=== PATIENT | female | born 1945 | race Caucasian/White ===

== ENCOUNTER 2020-06-03 09:57 | Emergency (ER) | payer OTHER, MEDICARE ==
[2020-06-03 10:07] VITALS: BP 144/77; PULSE 57; TEMP 98; BMI 21.4
[2020-06-03] MEDS ORDERED: DIPHTH,PERTUSS(ACELL),TET 0.5 ML DISP.SYRIN IM ONE ×2 (10:49)
[2020-06-03] MEDS ORDERED: BACITRACIN 15 GM TUBE TOPICAL OINTMENT ONE (10:49)
--- NOTE | 2020-06-03 10:55 | PDOC ---
History of Present Illness - General Chief Complaint: Bite Stated Complaint: DOG BITE Time Seen by Provider: 06/03/20 10:25 History Source: Patient - History of Present Illness Timing/Duration: reports: this morning Severity: Yes: mild Location: reports: extremities Past History - Medical History Allergies/Adverse Reactions: Allergies Allergy/AdvReac Type Severity Reaction Status Date / Time codeine [Codeine] AdvReac Severe pulse goes Unverified 06/03/20 10:07 down Home Medications: Ambulatory Orders Amoxicillin/Potassium Clav [Augmentin 875-125 Tablet] 1 each PO BID #14 tablet 06/03/20 Atorvastatin Ca [Lipitor] 20 mg PO HS 06/03/20 COPD: No - Psycho-Social/Smoking History Smoking History: Never smoked - Substance Abuse Hx (Audit-C & DAST Scrn) How often the patient has a drink containing alcohol: Never Score: In Men: 4 or > Positive; In Women: 3 or > Positive: 0 Screen Result (Pos requires Nsg. Audit-10AR): Negative Review of Systems - Review of Systems Integumentary: Yes: Other (dog bite) *Physical Exam - Vital Signs Last Vital Signs Temp Pulse Resp BP Pulse Ox 98 F 57 L 18 144/77 99 06/03/20 10:02 06/03/20 10:02 06/03/20 10:02 06/03/20 10:02 06/03/20 10:02 - Physical Exam General Appearance: Yes: Appropriately Dressed. No: Apparent Distress HEENT: positive: Normal Voice Neck: positive: Supple Respiratory/Chest: negative: Respiratory Distress Integumentary: positive: Dry, Warm, Other (~1cm size superficial abrasion to volar aspect of proximal R forearm) Neurologic: positive: Fully Oriented, Alert, Normal Mood/Affect Medical Decision Making - Medical Decision Making 06/03/20 12:20 75 yo F, p/w dog bite to R forearm from a domesticated dog this am. States dog on a long leash attacked her unprovokingly. Pt poke to consulting sales manager who states dog's vaccine, including rabies UTD per pt and who works EMT see exam Dog bite Domesticated animal w/ vaccine UTD -local wound care/dressing -tetanus updated -dc w/ abx -wound check in 48 hrs Discharge - Discharge Information Problems reviewed: Yes Clinical Impression/Diagnosis: Dog bite Qualifiers: Encounter type: initial encounter Qualified Code(s): W54.0XXA - Bitten by dog, initial encounter Condition: Good Disposition: HOME - Additional Discharge Information Prescriptions: Amoxicillin/Potassium Clav [Augmentin 875-125 Tablet] 1 each PO BID #14 tablet - Follow up/Referral Referrals: Gerber Garcia MD [Primary Care Provider] - - Patient Discharge Instructions Patient Printed Discharge Instructions: How to Care for a Domestic Animal Bite, DI for Dog Bite Additional Instructions: Keep wound clecn and dry Take antibiotics as directed Return in 2 days for wound check - Post Discharge Activity
== END 2020-06-03 11:01 | disposition home or self-care (01) ==
LOC: JERFT 09:57
PROC: 3E0234Z Introduction of Serum, Toxoid and Vaccine into Muscle, Percutaneous Approach (ICD-10-PCS; principal; 2020-06-03)
DX: S51.851A Open bite of right forearm, initial encounter (principal); W54.0XXA Bitten by dog, initial encounter
CPT/HCPCS: 90715; 99283-25